=== PATIENT | female | born 2000 | race African-American/Black ===

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

== ENCOUNTER 2021-06-02 14:06 | Emergency (ER) | payer OTHER ==
[~2021-06-02] VITALS: Ht 157.5 cm; Wt 95.3 kg
[~2021-06-02 14:06] MED LIST changes: +AUGMENTIN XR 11 EACH PO; +IBU400 MG PO
[2021-06-02] MEDS ORDERED: ALBUTEROL2.5 MG/3 M IH (16:35)
[2021-06-02] MEDS ORDERED: ZITHROMAX500 MG PO (16:35)
[2021-06-02] MEDS ORDERED: TUSICOF CAPLET1 EACH PO (16:35)
== END 2021-06-02 17:18 | disposition home or self-care (01) ==
LOC: EMR PED 14:06 → ER 14:06 → EMR PED 16:24
DX: J06.9 Acute upper respiratory infection, unspecified (principal); Z03.818 Encounter for observation for suspected exposure to other biological agents ruled out

== ENCOUNTER 2021-09-17 17:16 | Emergency (ER) | payer OTHER ==
[~2021-09-17] VITALS: Ht 157.5 cm; Wt 96.6 kg
[~2021-09-17 17:16] MED LIST changes: +ALBUTEROL2.5 MG/3 M IH; +ZITHROMAX500 MG PO
[2021-09-17] MEDS ORDERED: CIPRO500 MG PO (18:58)
[2021-09-17] MEDS ORDERED: URETRON D-S TAB1 TAB PO (18:58)
== END 2021-09-17 19:17 | disposition home or self-care (01) ==
LOC: EMR PED 17:16
DX: N39.0 Urinary tract infection, site not specified (principal); R30.0 Dysuria

== ENCOUNTER 2021-10-13 13:38 | Emergency (ER) | payer OTHER ==
[~2021-10-13] VITALS: Ht 157.5 cm; Wt 90.7 kg
[~2021-10-13 13:38] MED LIST changes: +CIPRO500 MG PO; +URETRON D-S TAB1 TAB PO
== END 2021-10-13 18:19 | disposition home or self-care (01) ==
LOC: ER 13:38 → EMR PED 13:43 → ER 13:43 → EMR PED 18:19
DX: U07.1 COVID-19 (principal)

== ENCOUNTER 2021-11-26 06:48 | Emergency (ER) | payer OTHER ==
[~2021-11-26] VITALS: Ht 157.5 cm; Wt 81.6 kg
== END 2021-11-26 10:45 | disposition home or self-care (01) ==
LOC: EMR PED 06:48 → ER 06:51 → EMR PED 06:51 → ER 10:45
DX: K29.70 Gastritis, unspecified, without bleeding (principal)

== ENCOUNTER 2022-09-10 23:00 | Emergency (ER) | payer OTHER ==
[~2022-09-10] VITALS: Ht 157.5 cm; Wt 86.2 kg
[2022-09-11] MEDS ORDERED: DICLOFENAC POTA50 MG PO (06:12)
[2022-09-11] MEDS ORDERED: ACETAMINOPHEN650 M2 (06:13)
== END 2022-09-11 06:18 | disposition home or self-care (01) ==
LOC: ER 23:00
DX: R10.2 Pelvic and perineal pain (principal)

== ENCOUNTER 2023-01-02 09:14 | Emergency (ER) | payer OTHER ==
[~2023-01-02] VITALS: Ht 157.5 cm; Wt 86.2 kg
[~2023-01-02 09:14] MED LIST changes: +ACETAMINOPHEN650 M2; +DICLOFENAC POTA50 MG PO
[2023-01-02] MEDS ORDERED: LEVSIN/SL0.125 MG SL (12:12)
[2023-01-02] MEDS ORDERED: PEPCID AC20 MG PO (12:12)
[2023-01-02] MEDS ORDERED: CARAFATE1 GM PO (12:12)
[2023-01-02] MEDS ORDERED: BACTRIM DS TAB1 EACH PO (12:12)
== END 2023-01-02 12:51 | disposition home or self-care (01) ==
LOC: ER 09:14
DX: K29.60 Other gastritis without bleeding (principal); N39.0 Urinary tract infection, site not specified

== ENCOUNTER 2023-05-26 06:26 | Emergency (ER) | payer OTHER ==
[~2023-05-26] VITALS: Ht 157.5 cm; Wt 85.3 kg
[~2023-05-26 06:26] MED LIST changes: +LEVSIN/SL0.125 MG SL; +PEPCID AC20 MG PO
[2023-05-26 08:42] LABS: HEMATOCRIT 35.8 % (36.0-45.00); HEMOGLOBIN 12.1 g/dL (12.0-15.00); MEAN CELL VOLUME 91.7 fL (80.00-100.00); MEAN CORPUSCULAR HEMOGLOBIN 30.9 pg (27.00-32.0); MEAN CORPUSCULAR HGB CONC 33.7 g/dl (32.0-36.0); PLATELET COUNT 279 K/uL (150-450); RED BLOOD COUNT 3.91 M/uL (4.00-6.00)
[2023-05-26 09:38] LABS: ALBUMIN 3.4 gm/dL (3.4-5.0); BILIRUBIN TOTAL 0.3 mg/dL (0.3-1.2); CALCIUM 8.4 mg/dL (8.5-10.1); CREATININE SERUM 0.71 mg/dL (0.55-1.02); GFR 102.94; POTASSIUM 3.82 mEq/L (3.5-5.1); TOTAL PROTEIN 7.4 gm/dL (6.4-8.2)
== END 2023-05-26 09:46 | disposition home or self-care (01) ==
LOC: ER 06:26
PROVIDERS: General Practice
DX: K29.70 Gastritis, unspecified, without bleeding (principal)

== ENCOUNTER 2023-05-27 17:37 | Inpatient (IN) | payer OTHER ==
[~2023-05-27] VITALS: Ht 157.5 cm; Wt 86.2 kg
== END 2023-05-30 15:28 | disposition home or self-care (01) | DRG 419 ==
LOC: ER 17:37 → SURG 23:23
PROVIDERS: Surgery; ADMIT Internal Medicine; ATTEND Internal Medicine
PROC: 0FT44ZZ Resection of Gallbladder, Percutaneous Endoscopic Approach (ICD-10-PCS; principal; 2023-05-28 14:00)
DX: K80.20 Calculus of gallbladder without cholecystitis without obstruction (principal)

== ENCOUNTER → 2023-11-13 06:12 | Outpatient (CLI) | payer OTHER ==
[2023-11-13 07:34] LABS: HEMATOCRIT 31.6 % (36.0-45.00); HEMOGLOBIN 10.6 g/dL (12.0-15.00); MEAN CELL VOLUME 92.8 fL (80.00-100.00); MEAN CORPUSCULAR HGB CONC 33.4 g/dl (32.0-36.0); PLATELET COUNT 213 K/uL (150-450); RED BLOOD COUNT 3.41 M/uL (4.00-6.00); RED CELL DISTRIBUTION WIDTH 14.7 % (11.5-14.5)
[2023-11-13 07:46] LABS: URINE APPEARANCE Clear; URINE BILIRRUBIN Negative (NEGATIVE); URINE BLOOD NHT; URINE COLOR Yellow; URINE GLUCOSE Negative (NEGATIVE); URINE LEUKOCYTE Small; URINE NITRATE Positive; URINE PROTEIN Negative (NEGATIVE); URINE UROBILINOGEN 0.2 E.U./dl
[2023-11-13 07:50] LABS: URINE EPITHELIAL CELLS 15.4 uL (0.0-38.8); URINE RBC 16.9 uL (0.0-20.8)
[2023-11-13 07:55] LABS: URINE BACTERIA > 9821.5 uL (0.0-1933)
[2023-11-13 08:06] LABS: ALBUMIN 3.3 gm/dL (3.4-5.0); BILIRUBIN TOTAL 0.35 mg/dL (0.3-1.2); CALCIUM 8.5 mg/dL (8.5-10.1); CREATININE SERUM 0.62 mg/dL (0.55-1.02); GFR 120.37; GLOBULINA 3.5 G/DL (2.4-3.5); POTASSIUM 3.78 mEq/L (3.5-5.1); T4 FREE 1.03 NG/ML (0.76-1.46); TOTAL PROTEIN 6.8 gm/dL (6.4-8.2); TSH 1.82 uIU/mL (0.358-3.74)
[2023-11-13 10:50] LABS: RH POSITIVE
[2023-11-13 15:00] LABS: RAPID PLASMA REAGIN NONREACTIVE BY RPR (NONREACTIVE)
[2023-11-14 06:06] LABS: PROGESTERONA 15.5 ng/mL (.)
[2023-11-14 08:10] LABS: HEPATITIS C VIRUS ANTIBODY Non Reactive (Non Reactive)
[2023-11-14 10:07] LABS: VARICELLA ZOSTER VIRUS IGG 368 index (Immune >165)
[2023-11-14 16:07] LABS: hgb a 97.3 % (96.4-98.8); hgb a2 2.7 % (1.8-3.2); hgb f 0 % (0.0-2.0); hgb s 0 % (0.0)
[2023-11-14 22:10] LABS: chla t Negative (Negative); neiss Negative (Negative)
[2023-11-15 22:06] LABS: RUBELLA IGM <20.0 AU/mL (0.0-19.9)
== END | disposition home or self-care (01) ==
LOC: LAB 06:12
PROVIDERS: ATTEND Obstetrics & Gynecology Maternal & Fetal Medicine
DX: Z34.81 Encounter for supervision of other normal pregnancy, first trimester (principal)

== ENCOUNTER 2024-01-28 11:18 | Emergency (ER) | payer OTHER ==
[~2024-01-28] VITALS: Ht 157.5 cm; Wt 100.7 kg
[2024-01-28] MEDS ORDERED: ONDANSETRON HCL 2 MG/ML VIAL IV ONE (13:00)
[2024-01-28 13:41] LABS: HEMATOCRIT 32.6 % (36.0-45.00); HEMOGLOBIN 10.9 g/dL (12.0-15.00); MEAN CELL VOLUME 92.3 fL (80.00-100.00); MEAN CORPUSCULAR HEMOGLOBIN 30.7 pg (27.00-32.0); MEAN CORPUSCULAR HGB CONC 33.3 g/dl (32.0-36.0); PLATELET COUNT 206 K/uL (150-450); RED BLOOD COUNT 3.54 M/uL (4.00-6.00)
[2024-01-28 14:08] LABS: BILIRUBIN TOTAL 0.32 mg/dL (0.3-1.2); CALCIUM 9.5 mg/dL (8.5-10.1); CREATININE SERUM 0.69 mg/dL (0.55-1.02); GFR 105.43; GLOBULINA 4.5 G/DL (2.4-3.5); POTASSIUM 4.01 mEq/L (3.5-5.1); TOTAL PROTEIN 7.5 gm/dL (6.4-8.2)
[2024-01-28 15:40] LABS: PH,URINE 5.5 (5.0-8.0); URINE APPEARANCE Turbid; URINE BILIRRUBIN Negative (NEGATIVE); URINE BLOOD Negative; URINE COLOR Yellow; URINE GLUCOSE Negative (NEGATIVE); URINE LEUKOCYTE Moderate; URINE NITRATE Positive; URINE PROTEIN Negative (NEGATIVE); URINE UROBILINOGEN 0.2 E.U./dl
[2024-01-28 15:41] LABS: URINE EPITHELIAL CELLS 18.3 uL (0.0-38.8); URINE WBC 275.3 uL (0.0-23.2)
[2024-01-28] MEDS ORDERED: ONDANSETRON 4 MG TAB.RAPDIS PO ONE (15:45)
[2024-01-28 15:54] LABS: URINE BACTERIA > 9821.5 uL (0.0-1933); URINE CRYSTALS FEW /HPF; URINE MUCUS MODERATE
== END 2024-01-28 16:04 | disposition home or self-care (01) ==
LOC: ER 11:19
PROVIDERS: General Practice
DX: O23.42 Unspecified infection of urinary tract in pregnancy, second trimester (principal); N39.0 Urinary tract infection, site not specified; Z3A.20 20 weeks gestation of pregnancy

== ENCOUNTER 2024-05-04 09:22 | Outpatient (CLI) | payer OTHER ==
[2024-05-04 10:46] LABS: PH,URINE 7.5 (5.0-8.0); URINE APPEARANCE Clear; URINE BILIRRUBIN Negative (NEGATIVE); URINE BLOOD Negative; URINE COLOR Yellow; URINE GLUCOSE Negative (NEGATIVE); URINE LEUKOCYTE Trace; URINE NITRATE Negative; URINE PROTEIN Negative (NEGATIVE); URINE UROBILINOGEN 0.2 E.U./dl
[2024-05-04 10:48] LABS: URINE BACTERIA 2420.2 uL (0.0-1933); URINE EPITHELIAL CELLS 61.8 uL (0.0-38.8); URINE RBC 4.1 uL (0.0-20.8); URINE WBC 23.6 uL (0.0-23.2)
== END 2024-05-04 09:25 | disposition home or self-care (01) ==
LOC: LAB 09:22
DX: Z3A.31 31 weeks gestation of pregnancy (principal)